=== PATIENT | male | born 1945 | race Caucasian/White ===

== ENCOUNTER 2016-04-01 20:42 | Emergency (ER) | payer OTHER ==
[~2016-04-01] VITALS: Ht 170.2 cm; Wt 83.9 kg
[2016-04-01 20:42] VITALS: BP 148/94; PULSE 68; RESP 20; TEMP 97.8; O2SAT 97
[2016-04-01 23:40] VITALS: BP 145/90; PULSE 70; RESP 17; TEMP 97.8; O2SAT 98
== END 2016-04-01 23:40 | disposition home or self-care (01) ==
LOC: SED 20:42
DX: G47.00 Insomnia, unspecified (principal); R03.0 Elevated blood-pressure reading, without diagnosis of hypertension
CPT/HCPCS: 99283